=== PATIENT | female | born 1965 | race Caucasian/White ===

== ENCOUNTER → 2016-03-21 | Outpatient (CLI) | payer BC ==
[~2016-03-21] MED LIST: BACIOIN2 TOP
[2016-03-21 18:08] LABS: ALT/SGPT 28 U/L (12-78); BLOOD UREA NITROGEN 18 mg/dl (7-18); BUN/CREATININE RATIO 14.9 (10-20); CALCIUM 9.3 mg/dl (8.5-10.1); CARBON DIOXIDE 28 mmol/L (21-32); CHLORIDE 102 mmol/L (98-107); GLUCOSE 102 mg/dl (70-99); POTASSIUM 3.3 mmol/L (3.5-5.1); SODIUM 140 mmol/L (136-145)
[2016-03-21 18:12] LABS: CHOLESTEROL 222 mg/dl (0-200); CHOLESTEROL/HDL RATIO 5.3; HDL CHOLESTEROL 42 mg/dl; TRIGLYCERIDES 268 mg/dl (0-150); VERY LOW DENSITY LIPOPROT CALC 54 mg/dl
== END | disposition home or self-care (01) ==
LOC: C.LABMFLN 12:15
PROVIDERS: ATTEND Family Medicine
DX: E78.00 Pure hypercholesterolemia, unspecified (principal); I10 Essential (primary) hypertension; E03.9 Hypothyroidism, unspecified; E55.9 Vitamin D deficiency, unspecified

== ENCOUNTER 2021-08-23 07:38 | Observation (INO) ==
--- NOTE | 2021-08-09 11:09 | PAT Medication Instructions ---
Medication Instructions Date of Service August 09, 2021 Home Medications Medication Instructions Recorded glimepiride 1 mg tablet 1 mg PO DAILY #30 tab 08/23/20 celecoxib 200 mg capsule (Celebrex) 200 mg PO DAILY #30 cap 02/20/21 atenolol 25 mg tablet See Rx Instructions .ROUTE 02/21/21 .COMPLEX #30 tablet ondansetron HCl 4 mg tablet 4 mg PO Q8H PRN #14 tab 02/21/21 (Zofran) valsartan 80 mg tablet 80 mg PO DAILY #30 tab 02/21/21 metformin 750 mg tablet,extended 750 mg PO BID #60 tab 03/11/21 release 24 hr atorvastatin 80 mg tablet 80 mg PO DAILY #90 tab 05/22/21 trazodone 50 mg tablet 100 mg PO DAILY PRN #30 tab 05/29/21 levothyroxine 50 mcg tablet 50 mcg PO DAILY #90 tab 06/19/21 cholecalciferol (vitamin D3) 50 mcg (2,000 unit) capsule 2,000 units PO BID glimepiride 1 mg tablet 1 mg PO DAILY celecoxib 200 mg capsule (Celebrex) 200 mg PO DAILY atenolol 25 mg tablet See Rx Instructions .ROUTE .COMPLEX ondansetron HCl 4 mg tablet (Zofran) 4 mg PO Q8H PRN valsartan 80 mg tablet 80 mg PO DAILY metformin 750 mg tablet,extended release 24 hr 750 mg PO BID atorvastatin 80 mg tablet 80 mg PO DAILY trazodone 50 mg tablet 100 mg PO DAILY PRN levothyroxine 50 mcg tablet 50 mcg PO DAILY aspirin 81 mg tablet 81 mg PO QAM cholecalciferol (vitamin D3) 50 mcg (2,000 unit) tablet (Vitamin D3) 50 mcg PO BID famotidine 20 mg tablet 20 mg PO DAILY Continue as directed atenolol 25 mg tablet See Rx Instructions .ROUTE .COMPLEX ondansetron HCl 4 mg tablet (Zofran) 4 mg PO Q8H PRN(if needed) atorvastatin 80 mg tablet 80 mg PO DAILY trazodone 50 mg tablet 100 mg PO DAILY PRN(if needed) levothyroxine 50 mcg tablet 50 mcg PO DAILY famotidine 20 mg tablet 20 mg PO DAILY ASK your surgeon for instructions celecoxib 200 mg capsule (Celebrex) 200 mg PO DAILY DO NOT take the morning of surgery cholecalciferol (vitamin D3) 50 mcg (2,000 unit) capsule 2,000 units PO BID glimepiride 1 mg tablet 1 mg PO DAILY valsartan 80 mg tablet 80 mg PO DAILY metformin 750 mg tablet,extended release 24 hr 750 mg PO BID cholecalciferol (vitamin D3) 50 mcg (2,000 unit) tablet (Vitamin D3) 50 mcg PO BID Take morning of surgery With a small sip of water, OTHERWISE NOTHING TO EAT OR DRINK AFTER MIDNIGHT: aspirin 81 mg tablet 81 mg PO QAM (unless directed otherwise by surgeon) Take evening before surgery metformin 750 mg tablet,extended release 24 hr 750 mg PO BID cholecalciferol (vitamin D3) 50 mcg (2,000 unit) capsule 2,000 units PO BID cholecalciferol (vitamin D3) 50 mcg (2,000 unit) tablet (Vitamin D3) 50 mcg PO BID Other Notes If you have any questions please call us at [phone] or [phone] or [phone] or [phone]
--- NOTE | 2021-08-11 13:48 | Anesthesiology Consultation ---
Date of Service August 11, 2021 Assessment & Plan (1) Encounter for pre-operative examination: - Awaiting review of preop testing (labs + A1C/UA, EKG, CXR). - Awaiting review of preop testing (08/16; [facility]). - COVID screening: Per assessment on 08/08: No known COVID-19 positive contacts or current COVID-19 related symptoms. Travel screen negative. Patient vaccinated. Surgeon arranging preop COVID testing. Awaiting results. Chart Review Chart Review: Patient seen in Pre Admission Testing Teaching & Discussion Pre-Anesthesia Teaching/Discussion Notes: Instructed NPO after midnight before surgery,except medications with 15 cc of water. Medication instructions provided according to the PAT guidelines. History Surgery Operation Date: 08/23/21 11:15 Proposed Procedures p Left Total Knee Arthroplasty - Félix Nelson MD Height/Weight Height: 5 ft 7 in Weight: 123.831 kg Allergies Allergy/AdvReac Type Severity Reaction Status Date / Time meloxicam AdvReac Intermediate Weird Verified 08/09/21 10:11 feeling lisinopril AdvReac Unknown Cough Verified 08/09/21 10:11 Medications Home Medications Medication Instructions Recorded Confirmed Last Taken cholecalciferol (vitamin D3) 50 2,000 units PO BID #1 cap 08/04/18 08/08/21 Unknown mcg (2,000 unit) capsule glimepiride 1 mg tablet 1 mg PO DAILY #30 tab 08/23/20 08/08/21 Unknown celecoxib 200 mg capsule (Celebrex) 200 mg PO DAILY #30 cap 02/20/21 08/08/21 Unknown atenolol 25 mg tablet See Rx Instructions .ROUTE 02/21/21 08/08/21 Unknown .COMPLEX #30 tablet ondansetron HCl 4 mg tablet 4 mg PO Q8H PRN #14 tab 02/21/21 08/08/21 Unknown (Zofran) valsartan 80 mg tablet 80 mg PO DAILY #30 tab 02/21/21 08/08/21 Unknown metformin 750 mg tablet,extended 750 mg PO BID #60 tab 03/11/21 08/08/21 Unknown release 24 hr atorvastatin 80 mg tablet 80 mg PO DAILY #90 tab 05/22/21 08/08/21 Unknown trazodone 50 mg tablet 100 mg PO DAILY PRN #30 tab 05/29/21 08/08/21 Unknown levothyroxine 50 mcg tablet 50 mcg PO DAILY #90 tab 06/19/21 08/08/21 Unknown aspirin 81 mg tablet 81 mg PO QAM 08/08/21 08/08/21 Unknown cholecalciferol (vitamin D3) 50 50 mcg PO BID 08/08/21 08/08/21 Unknown mcg (2,000 unit) tablet (Vitamin D3) famotidine 20 mg tablet 20 mg PO DAILY 08/08/21 08/08/21 Unknown Past Medical History Medical History Diabetes NIDDM GERD (gastroesophageal reflux disease) Hyperlipidemia Hypertension Hypothyroidism Morbid obesity Past Family History Family History Grandmother Diabetes Other Adopted Past Surgical History Surgical History H/O dilation and curettage S/P X2 S/P left knee surgery Social History Smoking Status: Former smoker tobacco type: cigarettes Do You Dip or Chew Tobacco: No Smoking End Date: QUIT 4 YRS AGO Hx Alcohol Use: No Alcohol type: hard liquor Hx Substance Use: No substance use type: does not use Review of Systems Patient denies chest pain, shortness of breath, dyspnea on exertion, fever, chills, cough, wheezing, palpitations. Physical Exam Vital Signs VITALS BP P TEMP SP02 RESP PHYSICAL Full cervical extension range of motion. Full TMJ range of motion. TMD __ finger breaths Mallampati Score ___ Dentition: intact Lungs: clear throughout to auscultation Cardiac: regular rate and rhythm, no murmurs noted Spine: normal Carotid arteries: negative bruit Extremities: no edema
--- NOTE | 2021-08-11 14:04 | Anesthesiology Consultation ---
Date of Service August 11, 2021 Assessment & Plan (1) Encounter for pre-operative examination: - check BSG am DOS. - loose front lower teeth. - PCP clearance upcoming per pt, 08/16. - COVID screening: Per assessment on 08/11/2021: Travel screen negative, no known COVID-19 positive contacts or current COVID-19 related symptoms in past 2 weeks. Pt vaccinated. Surgeon arranging preop COVID testing, scheduled 08/21/2021. Awaiting results. Chart Review Chart Review: Pending: Refer to Additional Notes / Consult section and Patient seen in Pre Admission Testing Teaching & Discussion Pre-Anesthesia Teaching/Discussion Notes: Instructed NPO after midnight before surgery, except medications with 15 cc of water. Medication instructions provided according to the PAT guidelines. History Surgery Operation Date: 08/23/21 11:15 Proposed Procedures p Left Total Knee Arthroplasty - Félix Nelson MD Height/Weight Height: 5 ft 7 in Weight: 126.6 kg Allergies Allergy/AdvReac Type Severity Reaction Status Date / Time meloxicam AdvReac Intermediate Weird Verified 08/11/21 14:11 feeling-dizziness "loopy" lisinopril AdvReac Unknown Cough Verified 08/09/21 10:11 Medications Home Medications Medication Instructions Recorded Confirmed Last Taken cholecalciferol (vitamin D3) 50 2,000 units PO BID #1 cap 08/04/18 08/08/21 Unknown mcg (2,000 unit) capsule glimepiride 1 mg tablet 1 mg PO DAILY #30 tab 08/23/20 08/08/21 Unknown celecoxib 200 mg capsule (Celebrex) 200 mg PO DAILY #30 cap 02/20/21 08/08/21 Unknown atenolol 25 mg tablet See Rx Instructions .ROUTE 02/21/21 08/08/21 Unknown .COMPLEX #30 tablet ondansetron HCl 4 mg tablet 4 mg PO Q8H PRN #14 tab 02/21/21 08/08/21 Unknown (Zofran) valsartan 80 mg tablet 80 mg PO DAILY #30 tab 02/21/21 08/08/21 Unknown metformin 750 mg tablet,extended 750 mg PO BID #60 tab 03/11/21 08/08/21 Unknown release 24 hr atorvastatin 80 mg tablet 80 mg PO DAILY #90 tab 05/22/21 08/08/21 Unknown trazodone 50 mg tablet 100 mg PO DAILY PRN #30 tab 05/29/21 08/08/21 Unknown levothyroxine 50 mcg tablet 50 mcg PO DAILY #90 tab 06/19/21 08/08/21 Unknown aspirin 81 mg tablet 81 mg PO QAM 08/08/21 08/08/21 Unknown cholecalciferol (vitamin D3) 50 50 mcg PO BID 08/08/21 08/08/21 Unknown mcg (2,000 unit) tablet (Vitamin D3) famotidine 20 mg tablet 20 mg PO DAILY 08/08/21 08/08/21 Unknown Past Medical History Medical History (Updated 08/11/21 @ 14:12 by Daniela Betancourt PA-C) Cervical radiculopathy at C6 Pt denies-pt denies neck or upper extremity paresthesias/weakness Depression Diabetes NIDDM GERD (gastroesophageal reflux disease) controlled, stable per pt Hyperlipidemia Hypertension controlled, stable per pt Hypothyroidism Morbid obesity Patient denies h/o stroke, seizures, heart attack, heart failure, blood clots or blood transfusions. Exercise / Class Metabolic Activity II 4-5 Yardwork/Stairs/Walk up hill (mild SOB walking up a hill chronic x yrs with reduced activity d/t knee pain, reports significant improvement since stopped smoking several yrs ago; lives in ranch style home; denies chest discomfort) Past Family History Family History Grandmother Diabetes Other Adopted Past Surgical History Surgical History H/O dilation and curettage S/P X2 S/P left knee surgery Past Anesthesia History No Hx of Anesthesia Complications and No Family Hx of Anesthesia Complications History of PONV No Hx of PONV and Hx of Motion Sickness Social History Smoking Status: Former smoker tobacco type: cigarettes Do You Dip or Chew Tobacco: No Smoking End Date: QUIT 4 YRS AGO Hx Alcohol Use: No Alcohol type: hard liquor Hx Substance Use: No substance use type: does not use Review of Systems Snoring, denies witnessed apneas or sleep studies. Patient denies chest pain, fever, chills, cough, wheezing, or palpitations. Physical Exam Vital Signs Vitals BP 112/72 P 69 TEMP 98.2 SP02 98% on RA RESP 17 Physical Full cervical extension range of motion without pain TMD 3.5 finger breaths Mallampati Score 2 Dentition: intact, loose lower front teeth; chipped teeth-lower sides and back; full upper dentures; denies implants or bridges, caps/crowns Lungs: normal respiratory effort. Clear throughout to auscultation, no adventitious breath sounds Cardiac: regular rate and rhythm, no murmurs noted Carotid arteries: negative bruit bilat Lab Results Anesthesia Preop Results Results Anesthesia Widget: WBC 9.91 K/uL (4.8-10.8) 08/11/21 Hgb 13.4 g/dL (12.0-16.0) 08/11/21 Hct 42.1 % (37-47) 08/11/21 Plt 413 K/uL (130-400) H 08/11/21 Na 140 mmol/L (136-145) 08/11/21 K 4.2 mmol/L (3.5-5.1) 08/11/21 Cl 105 mmol/L (98-107) 08/11/21 CO2 31 mmol/L (21-32) 08/11/21 BUN 22 mg/dl (6-23) 08/11/21 Creat 1.30 mg/dl (0.6-1.2) H 08/11/21 Glucose Level 108 mg/dl (70-99(Fasting)) H 08/11/21 PT 10.6 Seconds (9.0-12.0) 08/11/21 PTT 25.7 Seconds (21.0-31.0) 08/11/21 INR 1.0 (0.9-1.1) 08/11/21 HA1c 6.4 % (4.5-5.6) H 08/11/21 Urine Color Yellow 08/11/21 Urine Appearance Clear (Clear) 08/11/21 Urine pH 7.0 (4.5-7.5) 08/11/21 Urine Specific [place] 1.021 (1.000-1.030) 08/11/21 Urine Protein Negative (Negative) 08/11/21 Urine Glucose (UA) Negative (Negative) 08/11/21 Urine Ketones Negative (Negative) 08/11/21 Urine Blood Negative (Negative) 08/11/21 Urine Nitrite Negative (Negative) 08/11/21 Urine Bilirubin Negative (Negative) 08/11/21 Urine Urobilinogen Positive (Negative) H 08/11/21 Urine Leukocyte Esterase Negative (Negative) 08/11/21 Blood Type B Positive 08/11/21 Antibody Screen NEGATIVE 08/11/21 Testing Electrocardiogram Date: 08/11/21 Sinus rhythm with 1st degree block, rate 69 bpm Chest X-Ray Date: 08/11/21 No lines and tubes are seen. The cardiomediastinal silhouette is normal. The lungs are clear. No evidence of pleural effusion or pneumothorax. IMPRESSION: No acute chest disease.
--- NOTE | 2021-08-20 19:48 | History & Physical Report ---
Date of Service August 20, 2021 Assessment & Plan (1) Primary osteoarthritis of left knee: Plan: Treatment options discussed with patient. She has failed conservative measures and would like to proceed with surgery. Risks, benefits and alternatives to surgery including but not limited to infection, DVT, pain, stiffness, need for revision surgery, damage to blood vessels, damage to nerves, PE, , were discussed with the patient and they wish to proceed. Plan for left total knee arthroplasty scheduled for 08/23/21 at [facility] with Dr. Nelson. Will plan on Xarelto post op for DVT prophylaxis, home health PT post op. All questions answered. History of Present Illness Chief Complaint: Left knee pain Primary Care Provider: Stephen Molina MD 56 year old female with PMHx significant for HTN, high cholesterol, DM2 hypothyroid who presents with ongoing left knee pain. She has failed conservative measures. Pain interfering with her daily activities. She would like to proceed with surgical management. Patient denies headaches, sweats, fevers, chills, double vision, blurred vision, cough, sore throat, dysphagia, chest pain, sob, wheezing, n/v/d/c, numbness, tingling, fatigue, urinary symptoms, mood disorders. ROS positive for left knee pain and stiffness. Allergies Allergy/AdvReac Type Severity Reaction Status Date / Time meloxicam AdvReac Intermediate Weird Verified 08/16/21 16:22 feeling-dizziness "loopy" lisinopril AdvReac Unknown Cough Verified 08/16/21 16:22 Home Medications Medication Instructions Recorded Confirmed Type atenolol 25 mg tablet See Rx Instructions .ROUTE 02/21/21 08/16/21 Rx .COMPLEX #30 tablet ondansetron HCl 4 mg tablet 4 mg PO Q8H PRN #14 tab 02/21/21 08/16/21 Rx (Zofran) valsartan 80 mg tablet 80 mg PO DAILY #30 tab 02/21/21 08/16/21 Rx metformin 750 mg tablet,extended 750 mg PO BID #60 tab 03/11/21 08/16/21 Rx release 24 hr atorvastatin 80 mg tablet 80 mg PO DAILY #90 tab 05/22/21 08/16/21 Rx trazodone 50 mg tablet 100 mg PO DAILY PRN #30 tab 05/29/21 08/16/21 Rx levothyroxine 50 mcg tablet 50 mcg PO DAILY #90 tab 06/19/21 08/16/21 Rx aspirin 81 mg tablet 81 mg PO QAM 08/08/21 08/16/21 History famotidine 20 mg tablet 20 mg PO DAILY 08/08/21 08/16/21 History cholecalciferol (vitamin D3) 75 75 mcg PO BID tab 08/16/21 08/16/21 History mcg (3,000 unit) tablet glimepiride 1 mg tablet 0.5 mg PO DAILY tab 08/16/21 History Past Med/Surg History Medical History (Updated 08/20/21 @ 19:53 by Karlos Blakely PA-C) Cervical radiculopathy at C6 Pt denies-pt denies neck or upper extremity paresthesias/weakness Depression Diabetes NIDDM GERD (gastroesophageal reflux disease) controlled, stable per pt Hyperlipidemia Hypertension controlled, stable per pt Hypothyroidism Morbid obesity Surgical History H/O dilation and curettage S/P X2 S/P left knee surgery Family History Grandmother Diabetes Other Adopted Social History Smoking Status: Former smoker Age Started Using Tobacco: 15; Age Quit Using Tobacco: 53; Number of Years Since Quit: 35; Second Hand Exposure: No; Hx Alcohol Use: No Hx Substance Use: No Preferred Language: Gibraltarian Communication Ability: Effective Metallurgy Teacher Required: No Beliefs That Will Affect Care: None marital status: Current Living Situation: Spouse Current Living Situation Comment: spouse and daughter comes and goes Feels Safe at Home: Yes Childhood Exposure to Second-Hand Smoke: Yes Seatbelt Use: always Sunscreen Use: Yes Assistive Devices: Cane, Denture - Upper, Glasses and Walker Review of Systems All systems reviewed & are unremarkable except as noted in HPI & below Physical Exam Constitutional: well developed and well nourished; no acute distress Eyes: PERRL, conjunctivae normal, anicteric sclerae ENMT: external ear and nose normal, oropharynx normal Neck: trachea midline, no thyromegaly Respiratory: normal respiratory effort, lungs clear to auscultation Cardiovascular: RRR, no murmur, no edema Musculoskeletal: Left knee: Valgus alignment. Moderate crepitation with ROM. Tenderness lateral joint line. Positive Silvia's. Stable to valgus and varus stress. ROM 10-125 degrees. Skin: no rashes, warm and dry Neurologic: patellar DTR's 2+ bilat, sensation intact Psychiatric: A+Ox3, euthymic affect Results & Data ([facility]) Diagnostic Findings Left knee: Tricompartmental osteoarthritis, Bone on bone lateral compartment with periarticular osteophyte formation and subchondral sclerosis. Valgus alignment.
[~2021-08-23 07:38] MED LIST changes: +ACETAMINOPHEN 500 MG TAB PO SCH; -BACIOIN2 TOP; +BUPIVACAINE 0.5 % 5 MG/1 ML PF 10ML VIAL ONE; +CeleBREX 200 MG CAP PO SCH; +FAMOTIDINE 20 MG TAB PO SCH; +GABAPENTIN 600 MG DOSE PO SCH; +LR 500ML BOLUS, THEN 15ML/HR IV SCH; +METOCLOPRAMIDE HCL 10 MG TABLET PO SCH; +ROPIVACAINE 0.5% 5 MG/ML 30 ML VIAL ONE; +ROPIVACAINE 0.5% HCL/PF 150 MG, BUPIVACAINE 0.75% MPF 20 ML, EPINEPHrine 30MG/30ML (OR ... INFIL SCH; +TRANEXAMIC ACID 1,000 MG **IV Intra-op IV SCH; +TRANEXAMIC ACID 1,000 MG **IV Pre-op IV SCH; +ceFAZolin 2000MG 2,000 MG/15 ML SYR IV SCH
[2021-08-23] MEDS ORDERED: MIDAZOLAM HCL 1 MG/ML 2ML VIAL ONE ×2 (08:46→09:39)
[2021-08-23] MEDS ORDERED: ONDANSETRON INJ 2 MG/ML 2 ML VIAL ONE (08:46)
[2021-08-23] MEDS ORDERED: PROPOFOL IV EMULSION 10 MG/ML 20 ML VIAL IV ONE ×8 (08:46→12:27)
[2021-08-23] MEDS ORDERED: fentaNYL citrate 100 MCG/2 ML VIAL ONE (08:46)
[2021-08-23] MEDS ORDERED: LIDOCAINE 2% 2 ML VIAL/AMP(20MG/ML) INFIL ONE (08:46)
[2021-08-23] MEDS ORDERED: fentaNYL citrate 100 MCG/2 ML VIAL IV PRN (09:12)
[2021-08-23] MEDS ORDERED: ePHEDrine sulfate 50 MG/ML AMP IV PRN (09:12)
[2021-08-23] MEDS ORDERED: ATROPINE SULFATE 0.1 MG/ML 10ML SYR IV PRN (09:12)
[2021-08-23] MEDS ORDERED: ORTHO JOINT ANESTHETIC ONE (09:43)
--- NOTE | 2021-08-23 09:46 | History & Physical Bridge Note ---
Date of Service August 23, 2021 History & Physical Bridge Note I have examined the patient, reviewed the History & Physical and in the interval since the performance of the History & Physical I have noted the following changes of clinical significance: no changes noted
[2021-08-23] MEDS ORDERED: KETAMINE 50 MG/5 ML SYRINGE ONE (10:17)
[2021-08-23] MEDS ORDERED: ePHEDrine sulfate 50 MG/ML AMP ONE (10:32)
[2021-08-23] MEDS ORDERED: GLYCOPYRROLATE 0.2 MG/ML VIAL ONE (11:38)
--- NOTE | 2021-08-23 13:01 | Post Operative Brief Note ---
Immediate Post Op Note v1 Date of Surgery August 23, 2021 Pre & Post Diagnosis Operation Date: 08/23/21 09:40 Pre-Op Diagnosis: Primary Osteoarthritis of Left Knee, morbid obesity BMI 42.6 Post-Op Diagnosis: Primary Osteoarthritis of Left Knee, morbid obesity BMI 42.6 I identified the patient and participated in the time-out.: Yes Procedure Operation Date: 08/23/21 09:40 Actual Procedures p Left Total Knee Arthroplasty(Left), lateral release, superficial wound VAC application- Félix Nelson MD Surgeon Félix Nelson MD Online Marketing Director Bridger ORTEGA Estimated Blood Loss 5 Findings Consistent with Post-Op Diagnosis Specimens Bone cuts Drains Hemovac Drain Anesthesia Type MAC Spinal Regional Complications none Disposition Disposition: Recovery Room Overlapping Procedure I was immediately available: during the entire case.
--- NOTE | 2021-08-23 13:06 | Operative Report ---
Post Operative Report Pre & Post Diagnosis Operation Date: 08/23/21 09:40 Pre-Op Diagnosis: Primary Osteoarthritis of Left Knee, morbid obesity BMI 42.6 Post-Op Diagnosis: Primary Osteoarthritis of Left Knee, morbid obesity BMI 42.6 I identified the patient and participated in the time-out.: Yes Procedure Operation Date: 08/23/21 09:40 Actual Procedures p Left Total Knee Arthroplasty(Left), lateral release, application superficial wound VAC, increased difficulty more obesity BMI 42.6 Félix Nelson MD Surgeon Félix Nelson MD Assistant In Nursing Bridger ORTEGA Estimated Blood Loss 5 Findings Consistent with Post-Op Diagnosis Specimens Bone cuts Drains 2 Hemovac Anesthesia Type MAC Spinal Regional Complications none Indications 56-year-old female with very severe osteoarthritis of her left knee and advanced osteoarthritis of her right knee. Left knee has large tricompartmental osteophytes and valgus knee [id number] in the lateral compartment and hypoplastic lateral femoral condyle flexion contracture and limited range of motion. [id number] medial and lateral compartments on flexion views Description of Procedure Patient taken to the operating room the size under spinal MAC regional block anesthesia. Patient was placed supine on the operating table. A pneumatic tourniquet was placed about the obese left upper thigh. The left lower extremity was prepped and draped in sterile fashion. Knee exam demonstrated obesity of the leg thigh and a more than typical fat deposit over the prepatellar bursa area. Range of motion was 15 degrees with flexion contracture with further flexion to 95 degrees. There was no pseudolaxity and a tight lateral compartment. The leg was elevated exsanguinated with an Esmarch bandage and pneumatic tourniquet was raised to 350 millimeters of mercury. Skin incised sharply in longitudinal fashion. Subcutaneous flaps elevated. Incision was made through the medial retinaculum extending up in the mid third of the quadric eps tendon and down to the medial tibial tubercle. Intra-articular findings demonstrated massive osteophytes [id number] in medial lateral compartments with large osteophytes in the patellofemoral joint. ACL was chronically torn and was complete notch stenosis with bone coursing across the entire notch. There was a hypoplastic lateral femoral condyle with bone loss laterally. There is widening of the femur and tibia due to osteophytes with widening of the lateral tibial plateau. The [employer] triVena Solutionslon total knee arthroplasty system was used. To expose the knee the infrapatellar fat pad was resected. A curved osteotome was used to resect the notch osteophytes to visualize the PCL. The meniscal remnants and the posterior cruciate ligament were resected. The anterior fat pad over the femur in the area of the anterior flange of the femoral component was resected. Lateral synovial bands release. The femur was exposed. Some of the larger osteophytes had to be removed with a rongeur to get appropriate sizing and placement of the cutting guides. An intramedullary drill hole was made into the canal. A guide phillip was placed. Distal femoral cutting guide was adjusted to resect a 6 degree valgus cut with 10 millimeters distal femur resected. The knee was extended and a subperiosteal peel lateral release was performed around the patella. Patella width was measured and width was reproduced using a freehand cut technique and a 33 x 9 symmetrical patella component. The 3 drill holes were made and the excess lateral facet was beveled off to prevent any impingement. Attention was taken back to the femur which was exposed with retractors and the femoral sizing guide was pinned in position. The drill holes were placed in line with the epicondylar axis. Femur sized for a 5 component. The 4-in-1 cutting block was placed and then the anterior posterior and chamfer cuts are made. The tibia was then subluxed. Some of the large osteophytes had to be removed to allow placement of the appropriate cutting guide. The external tibial cutting guide was just to make a perpendicular cut to the long axis of the tibia below the most deficient bone loss side. A lamina developing machine tender was used and the flexion extension gaps were balanced. Did release some of the lateral capsule and subperiosteal release of the upper IT band off the tibia. All posterior osteophytes removed. All meniscal remnants were resected. The tibia exposed and the trial tibial component size 5 was externally rotated in line with the tibial tubercle and pinned in position. The drill and punch for the 50 mm cemented stem extension was used. The notch cutting device was centered appropriately and the femoral notch cut was made. The femoral trial was inserted. Trial tibial inserts were placed and size 16 posterior stabilized insert gave balanced ligaments through flexion and extension. Patella tracking was assessed. The patella tracked with lateral tilt so I did a lateral release leaving as much synovium intact as possible. Patella tracks centrally with no hand technique. The trial components were then removed and the orthomix anesthetic cocktail was injected per protocol. The knee was then copiously irrigated with pulsatile lavage saline solution. Final components were then cemented with Refobacin cement. Final components were [place] triathlon left size 5 posterior stabilized femoral component, triathlon universal tibial baseplate size 5, 12 x 50 mm tibial cemented stem, size five 16mm thickness X.3 polyethylene tibial bearing posterior stabilized insert, 33 x 9 symmetrical patella X.3 polyethylene. After the cement cured the Betadine soak was used for 3 minutes. Further pulsatile lavage irrigation was then performed and 2 Hemovac drains were brought out laterally. The quadriceps tendon and medial retinaculum were closed with figure of 8 #1 Vicryl sutures. The knee was taken through full range of motion and the repair was secure. Knee range of motion was 0 through 130 degrees. The subcutaneous tissues were closed with layers of 2-0 Vicryl sutures. Skin was closed with capri. Vadim and Acticoat superficial wound VAC was applied. The patient tolerated the procedure well. There was increased level difficulty due to her obesity which added 30 minutes of procedure. Bridger ORTEGA was my physician shampoo assistant who participated as social service assistant and was involved in all aspects of the procedure including patient positioning prepping and draping,leg positioning ,soft tissue retraction and instrument management and participated in the closing and will participate in postoperative care of the patient. The patient tolerated the procedure well. I attest to the content of the Intraoperative Record and any orders documented therein. Any exceptions are noted below.
--- NOTE | 2021-08-23 13:35 | XRay Report ---
XR knee LT 1 or 2V routine CLINICAL HISTORY: Surgical Post Op. Status post total knee replacement COMPARISON STUDY: No previous studies for comparison. TECHNIQUE: 2 left knee views FINDINGS: The patient is status post total knee replacement. The prosthetic components are in anatomi c alignment with no acute abnormality seen. Air is present within the soft tissues from the procedure . Skin capri are seen anteriorly. IMPRESSION: 1. Status post total knee replacement with resurfacing of the patella. ACT 112: Negative or not required by law. Electronically signed by: Jhony Vital M.D. 08/23/2021 1:33 PM
[2021-08-23] MEDS ORDERED: EPINEPHrine HCL INJ 1 MG/ML 30ML ONE (13:49)
[2021-08-23] MEDS ORDERED: traZODone HCL 100 MG TAB PO PRN (14:07)
[2021-08-23] MEDS ORDERED: ONDANSETRON INJ 2 MG/ML 2 ML VIAL IV PRN (14:07)
[2021-08-23] MEDS ORDERED: FAMOTIDINE 20 MG TAB PO PRN (14:07)
[2021-08-23] MEDS ORDERED: HYDROmorphone INJ 0.5 MG/0.5 ML SYR IV PRN (14:07)
[2021-08-23] MEDS ORDERED: bisacodyL 10 MG SUPP PR PRN (14:07)
[2021-08-23] MEDS ORDERED: METOCLOPRAMIDE HCL INJ 5 MG/ML 2 ML VIAL IV PRN (14:07)
[2021-08-23] MEDS ORDERED: NALOXONE HCL 0.4 MG/1 ML VIAL/CARP IV PRN (14:07)
[2021-08-23] MEDS ORDERED: PHARMACY GLYCEMIC MGMT CONSULT PRN (14:07)
[2021-08-23] MEDS ORDERED: MAGNESIUM HYDROXIDE SUSP 30 ML UDC PO PRN (14:07)
--- NOTE | 2021-08-23 14:22 | Pharmacy Report ---
Glycemic Ortho Sign Off Note - Date of Service August 23, 2021 - Scope Glycemic Pharmacist consulted for glycemic control and to write orders per [facility] inpatient glycemic control protocol. - Objective Accuchecks BSG (last 24hrs):: 08/23/21 08/23/21 08:02 13:00 POC Glucose 179 H 138 H - Assessment * Pt is maintained on oral antidiabeticagent[s]as anoutpatient with excellent control per recent A1c * Oral agents are not recommended for inpatient use d/t drug interactions, changing PO intake, and difficulty titrating for acute hyper/hypoglycemia. * Recommended regimen for inpatient use is SQ insulin * Low stress weight based insulin dosing appropriate since patient has minimal risk factors for insulin resistance (i.e. no steroids). * Appropriate to DC insulin and resume outpatient antidiabetic regimen at discharge * Goal is to maintain BSGs <200 mg/dl (ideally <150 mg/dl) to prevent post op complications - Plan For Inpatient Glycemic Control * Basal insulin * Not needed based on A1c, pre-op BSGs, and minimal risk factors for insulin resistance * Bolus insulin * Utilize low stress weight based NovoLog parameters per scale ACHS * Pharmacy has entered glycemic orders and is signing off of the glycemic consult. We will no longer be making adjustments to inpatient regimen. Please feel free to re-consult if needed. Thank you.
[2021-08-23] MEDS ORDERED: ONDANSETRON 4 MG OD TAB PO PRN (14:23)
[2021-08-23] MEDS ORDERED: SODIUM CHLORIDE 0.9% 1000ML 1,000 ML IV SCH (14:30)
[2021-08-23] MEDS ORDERED: GLUCOSE 40% GEL 15 GM TUBE PO PRN (14:45)
[2021-08-23] MEDS ORDERED: CARBOHYDRATES FOR HYPOGLYCEMIA PO PRN (14:45)
[2021-08-23] MEDS ORDERED: DEXTROSE 50% 50 ML SYRINGE IV PRN (14:45)
[2021-08-23] MEDS ORDERED: GLUCOSE 10 TABS/TUBE PO PRN (14:45)
[2021-08-23] MEDS ORDERED: GLUCAGON FOR INJ 1 MG VIAL IM PRN (14:45)
--- NOTE | 2021-08-23 15:07 | Anesthesiology Progress Note ---
Date of Service August 23, 2021 Anesthesia Post Procedure Vital Signs Vital Signs: Temp Pulse Pulse Resp BP Pulse Ox 08/23/21 15:03 36.9 C 18 118/75 97 08/23/21 14:21 36.4 C L 76 109/74 97 08/23/21 13:45 76 19 107/64 93 08/23/21 13:30 76 15 109/72 94 08/23/21 13:25 72 14 114/75 95 08/23/21 13:15 36.5 C 79 13 95/58 L 95 08/23/21 13:05 86 21 91/59 L 98 08/23/21 12:55 36.6 C 90 17 93/55 L 99 08/23/21 08:11 36.5 C 64 18 137/76 99 Pain Intensity Left Knee: Pain Intensity: 6 Transfer of Care Handoff Completed per policy Notes Mental Status: alert / awake / arousable and participated in evaluation Patient Amnestic to Procedure: Yes Nausea / Vomiting: adequately controlled Pain: adequately controlled Airway Patency, RR, SpO2: stable & adequate BP & HR: stable & adequate Hydration State: stable & adequate Neuraxial Anesthesia: was administered and sensory block is resolving Anesthetic Complications: no major complications apparent
--- NOTE | 2021-08-23 15:50 | Hospitalist Consultation ---
Date of Consultation August 23, 2021 Assessment & Plan (1) Primary osteoarthritis of left knee: - s/p left TKA. EBL 5cc. [address] No complications reported. - Defer ABX/IVF/pain management/VTE PPx to primary team. - Rescue Narcan ordered as needed. - CBC and BMP in a.m. (2) Diabetes mellitus: - Currently taking metformin ER 750 mg twice daily and glimepiride 0.5 mg on days when sugar is high. - A1c August 2021 6.4, average blood sugar 137. - Pharmacy consulted by primary team for glycemic control, holding oral agents today , using accuchecks with SSI. - Patient may restart oral medications on discharge. (3) Hypertension: - Currently on valsartan 80 mg daily and atenolol 25 mg daily. - Continue atenolol tomorrow, may also continue valsartan tomorrow pending no electrolyte abnormalities or decreased renal function on a.m. BMP tomorrow. (4) HLD (hyperlipidemia): - Continue atorvastatin 80 mg daily. (5) Hypothyroidism: - Continue levothyroxine 50 mcg daily. - TSH in May 2021 5.09. (6) Insomnia: - Takes trazodone 100 mg as needed, but no every night. May continue if needed tonight. - Admitted to [facility] per primary team. - VTE PPx per primary team. - Full code. Supervising Physician Co-Signing Physician Notes Patient seen and examined, chart reviewed, case discussed with Meryl Garcia PA-C and I agree with the assessment and plan as above except as otherwise noted General: A&Ox3. NAD. Cooperative. HEENT: Atraumatic, normocephalic. Vision/hearing grossly intact. Pulm: CTAB A&P. -wheezes, -rales, -rhonchi. Symmetrical chest rise. No increase in work of breathing. No respiratory distress. Cardiac: RRR, -mrg. Radial pulses intact and symmetrical. Abdominal: Nontender, nondistended, soft. BS present. Extremities: Left knee in postsurgical wrap, drain in place with sanguinous output. Sensation is soft touch intact in feet without asymmetry. PT pulses intact bilaterally. Labs and images reviewed 56-year-old female status postLeft TKA. With some left knee postoperative stiffness and pain at the knee, otherwise doing well. Agree with management above. Continue multimodal pain control per primary team DVT prophylaxis per primary team. Case management working on cost of DOAC. BMP daily, normotensive with baseline creatinine and agree with continuing ARB/atenolol. History of Present Illness Reason for Consultation: Medical management Attending Physician: Félix Nelson MD History of Present Illness Shereen Lundberg is a 56-year-old female with past medical history significant for DM2, hypertension, hyperlipidemia, GERD, and hypothyroidism who was admitted today, 08/[address] Nelson for an elective left TKA. Hospitalist team was consulted for medication management. Today, Shereen is POD #0. She is doing well without complaints. She denies fever/chills, chest pain, palpitations, shortness of breath, cough, abdominal pain, nausea, vomiting. Allergies Allergy/AdvReac Type Severity Reaction Status Date / Time meloxicam AdvReac Intermediate Weird Verified 08/23/21 08:08 feeling-dizziness "loopy" lisinopril AdvReac Unknown Cough Verified 08/23/21 08:08 Home Medications Medication Instructions Recorded Confirmed Type atenolol 25 mg tablet See Rx Instructions .ROUTE 02/21/21 08/23/21 Rx .COMPLEX #30 tablet ondansetron HCl 4 mg tablet 4 mg PO Q8H PRN #14 tab 02/21/21 08/23/21 Rx (Zofran) metformin 750 mg tablet,extended 750 mg PO BID #60 tab 03/11/21 08/23/21 Rx release 24 hr atorvastatin 80 mg tablet 80 mg PO DAILY #90 tab 05/22/21 08/23/21 Rx trazodone 50 mg tablet 100 mg PO DAILY PRN #30 tab 05/29/21 08/23/21 Rx levothyroxine 50 mcg tablet 50 mcg PO DAILY #90 tab 06/19/21 08/23/21 Rx aspirin 81 mg tablet 81 mg PO QAM 08/08/21 08/23/21 History famotidine 20 mg tablet (Pepcid) 20 mg PO DAILY PRN 08/08/21 08/23/21 History cholecalciferol (vitamin D3) 75 75 mcg PO BID tab 08/16/21 08/23/21 History mcg (3,000 unit) tablet glimepiride 1 mg tablet 0.5 mg PO DAILY tab 08/16/21 08/23/21 History acetaminophen 500 mg tablet 1,000 mg PO Q8 14 Days #84 tab 08/23/21 Rx (Tylenol Extra Strength) valsartan 80 mg tablet (Diovan) 80 mg PO DAILY 08/23/21 08/23/21 History oxycodone 5 mg tablet 5 mg PO Q4H PRN #30 tab MDD 6 08/24/21 Rx polyethylene glycol 3350 17 gram 17 g PO DAILY PRN #5 ea 08/24/21 Rx oral powder packet (Miralax) rivaroxaban 10 mg tablet (Xarelto) 10 mg PO DAILY 30 Days #30 tab 08/24/21 Rx Patient History Medical History Benign essential hypertension Cervical radiculopathy at C6 Pt denies-pt denies neck or upper extremity paresthesias/weakness Depression Diabetes NIDDM GERD (gastroesophageal reflux disease) controlled, stable per pt Hyperlipidemia Hypertension controlled, stable per pt Hypothyroidism Morbid obesity Surgical History H/O dilation and curettage S/P X2 S/P left knee surgery Family History Grandmother Diabetes Other Adopted Social History Smoking Status: Former smoker Age Started Using Tobacco: 15; Age Quit Using Tobacco: 53; Smoking End Date: QUIT 4 YRS AGO; Number of Years Since Quit: 35; Second Hand Exposure: No; Do You Dip or Chew Tobacco: No; Tobacco Cessation Education Requested by Patient: No Hx Alcohol Use: No Hx Substance Use: No Preferred Language: Canadian Communication Ability: Effective Field Crew Chief Required: No Beliefs That Will Affect Care: None marital status: Current Living Situation: Spouse Current Living Situation Comment: spouse and daughter comes and goes Other Information That Helps Us Care for You: No Feels Safe at Home: Yes Safety Concerns: Feels Safe At This Time Childhood Exposure to Second-Hand Smoke: Yes Seatbelt Use: always Sunscreen Use: Yes Assistive Devices: Walker Assistive Devices Comment: USES CANE OCC. HAS WALKER THAT WILL BRING DOS Review of Systems Review of Systems: Constitutional: No fever/chills, weakness, fatigue, myalgias, anorexia, night sweats Eyes: No diplopia, no worsening or blurred vision ENT: normal hearing, no trouble swallowing Respiratory: No cough, sputum, dyspnea at rest or on exertion Cardiovascular: No chest pain, tightness or palpitations Abdomen: No pain, nausea, vomiting, diarrhea or constipation : Denies dysuria, hematuria, increased urgency/frequency, urinary retention Musculoskeletal: No joint pain, calf pain, swelling Neurologic: No weakness, numbness/tingling, or balance problems Psychiatric: No anxiety or depression Skin: No rash or itch Physical Exam Physical Exam: General: awake, alert, no apparent distress Head: Normocephalic, atraumatic ENT: PERRL, EOMI, no pharyngeal exudate, mucous membranes moist Chest: Clear to auscultation, on room air, no adventitious breath sounds Cardiac: Regular rate and rhythm, no murmur, no JVD, normal peripheral pulses, good capillary refill Abdominal: NABS x 4 quadrants, soft, nontender to palpation, no rebound, guarding or tenderness Extremities: LLE wrapped; Normal inspection, no peripheral edema or erythema, calfs nontender to palpation Psych: Normal mood and affect Neuro: AAO x 3, strength intact bilaterally and rated 5/5, no motor deficits, speech is clear, no peripheral sensory deficits Skin: no rash or erythema Results & Data Results & [facility] ([facility]) Vital Signs (Past 12 Hours) Vital Signs Temp Pulse Pulse Resp BP Pulse Ox 08/23/21 15:03 36.9 C 18 118/75 97 08/23/21 14:21 36.4 C L 76 109/74 97 08/23/21 13:45 76 19 107/64 93 08/23/21 13:30 76 15 109/72 94 08/23/21 13:25 72 14 114/75 95 08/23/21 13:15 36.5 C 79 13 95/58 L 95 08/23/21 13:05 86 21 91/59 L 98 08/23/21 12:55 36.6 C 90 17 93/55 L 99 08/23/21 08:11 36.5 C 64 18 137/76 99 Laboratory Results Abnormal lab results 08/23/21 08/23/21 Range/Units 08:02 13:00 POC Glucose 179 H 138 H (70-99) mg/dl Diagnostic Findings Knee X-Ray 08/23/21 12:55 XR knee LT 1 or 2V routine CLINICAL HISTORY: Surgical Post Op. Status post total knee replacement COMPARISON STUDY: No previous studies for comparison. TECHNIQUE: 2 left knee views FINDINGS: The patient is status post total knee replacement. The prosthetic components are in anatomic alignment with no acute abnormality seen. Air is present within the soft tissues from the procedure. Skin capri are seen anteriorly. IMPRESSION: 1. Status post total knee replacement with resurfacing of the patella. ACT 112: Negative or not required by law. Electronically signed by: Jhony Vital M.D. 08/23/2021 1:33 PM PG Care Time/CCT Total # of Minutes Spent Total Time Spent with Patient: Total time spent is greater than 50% in coordination of care (as documented) at patient's floor/unit and/or counseling patient: Coding Level of Care Code 98166 Inpt Consult Level 2 Diagnoses Primary osteoarthritis of left knee M17.12 Diabetes mellitus E11.9 HLD (hyperlipidemia) E78.5 Hypothyroidism E03.9 Hypertension I10 Insomnia G47.00
[2021-08-23] MEDS: ATENOLOL 25 MG TABLET PO SCH (16:13)
[2021-08-23] MEDS: ACETAMINOPHEN 500 MG TAB PO SCH ×2 (16:20→20:44)
[2021-08-23] MEDS: INSULIN ASPART PER UNIT SC SCH ×2 (17:40→20:35)
[2021-08-23] MEDS: ceFAZolin 2000MG 2,000 MG/15 ML SYR IV SCH (17:41)
[2021-08-23] MEDS: oxyCODONE HCL IR 5 MG TAB (IMMEDIATE RELEASE) PO PRN ×2 (18:28→23:41)
[2021-08-23] MEDS: CHOLECALCIFEROL 1,000 UNITS 25 MCG TAB PO SCH (20:45)
[2021-08-23] MEDS: SENNA 8.6 MG TAB PO SCH (20:45)
[2021-08-23] MEDS: DOCUSATE SODIUM 100 MG CAP PO SCH (20:45)
[2021-08-24] MEDS: ceFAZolin 2000MG 2,000 MG/15 ML SYR IV SCH (01:13)
[2021-08-24] MEDS: oxyCODONE HCL IR 5 MG TAB (IMMEDIATE RELEASE) PO PRN ×3 (04:41→17:57)
[2021-08-24] MEDS: LEVOTHYROXINE SODIUM 50 MCG TABLET PO SCH (04:42)
[2021-08-24] MEDS: ACETAMINOPHEN 500 MG TAB PO SCH ×3 (04:43→21:33)
[2021-08-24 06:19] LABS: Hematocrit (blood only) 38.9 % (37-47); Hemoglobin 12.2 g/dL (12.0-16.0); Mean Corpuscular Hemoglobin 28.8 pg (25-34); Mean Corpuscular Hgb Conc 31.4 g/dL (32-36); Mean Corpuscular Volume 91.7 fL (80-100); Mean Platelet Volume 10.4 fL (7.4-10.4); Platelet Count 310 K/uL (130-400); RDW Coefficient of Variation 13.6 % (11.5-14.5); RDW Standard Deviation 45.5 fL (36.4-46.3); Red Blood Count 4.24 M/uL (4.2-5.4); White Blood Count 8.29 K/uL (4.8-10.8)
[2021-08-24 06:43] LABS: BUN Creatinine Ratio 17.7 (10-20); Calcium 9.2 mg/dl (8.5-10.1); Creatinine Clr Calc Pharmacy 74.9 ml/min; Est GFR (African American) 62.5 ml/min; Est GFR (Non-African American) 53.9 ml/min; Potassium 4.3 mmol/L (3.5-5.1)
--- NOTE | 2021-08-24 08:14 | Orthopedic Progress Note ---
Date of Service August 24, 2021 Assessment & Plan (1) Primary osteoarthritis of left knee: Plan: Postop day 1 status post left total knee arthroplasty PT/OT protocols. Weightbearing as tolerated. DVT prophylaxis-rivaroxaban p.o. daily, SCDs, ZOLTAN dawn. Pain management as written DC planning-patient is hoping for home health services upon discharge. Case management in the process of arranging. Admission and Anticipated Discharge Date Admission Date: August 23, 2021 Subjective Postop day 1 Patient lying in bed awake and alert. States she had a bit of a rough night with pain in the upper thigh likely secondary to tourniquet. Pain is much better controlled this morning. She has no complaints. Denies shortness of breath, chest pain, lightheadedness. Physical Exam Physical Exam: Dressings are clean, dry, and intact. Calves are soft and no ntender. Neurovascular intact. Toes are mobile. She has good dorsiflexion and plantarflexion of the left foot. Hemovac drainage was 125 mL from the previous shift. Results & Data ([facility]) Vital Signs (Past 12 Hours) Vital Signs Temp Pulse Resp BP BP Pulse Ox 08/24/21 07:43 36.6 C 76 18 106/70 94 08/24/21 04:28 36.4 C L 73 18 135/82 96 08/23/21 23:14 36.4 C L 66 16 115/74 97 Laboratory Results Laboratory Results WBC 8.29 K/uL (4.8-10.8) 08/24/21 06:07 RBC 4.24 M/uL (4.2-5.4) 08/24/21 06:07 Hgb 12.2 g/dL (12.0-16.0) 08/24/21 06:07 Hct 38.9 % (37-47) 08/24/21 06:07 MCV 91.7 fL (80-100) 08/24/21 06:07 MCH 28.8 pg (25-34) 08/24/21 06:07 MCHC 31.4 g/dL (32-36) L 08/24/21 06:07 RDW Std Deviation 45.5 fL (36.4-46.3) 08/24/21 06:07 RDW Coeff of Kevin 13.6 % (11.5-14.5) 08/24/21 06:07 Plt Count 310 K/uL (130-400) 08/24/21 06:07 MPV 10.4 fL (7.4-10.4) 08/24/21 06:07 Sodium 136 mmol/L (136-145) 08/24/21 06:07 Potassium 4.3 mmol/L (3.5-5.1) 08/24/21 06:07 Chloride 106 mmol/L (98-107) 08/24/21 06:07 Carbon Dioxide 26 mmol/L (21-32) 08/24/21 06:07 Anion Gap 4 (3-11) 08/24/21 06:07 BUN 20 mg/dl (6-23) 08/24/21 06:07 Creatinine 1.13 mg/dl (0.6-1.2) 08/24/21 06:07 Est Cr Clr Drug Dosing 74.9 ml/min 08/24/21 06:07 Est GFR ( Amer) 62.5 ml/min 08/24/21 06:07 Est GFR (Non-Af Amer) 53.9 ml/min 08/24/21 06:07 BUN/Creatinine Ratio 17.7 (10-20) 08/24/21 06:07 Glucose 158 mg/dl (70-99(Fasting)) H 08/24/21 06:07 POC Glucose 131 mg/dl (70-99) H 08/24/21 07:53 Calcium 9.2 mg/dl (8.5-10.1) 08/24/21 06:07 SARS-CoV-2, RNA, NAAT NEGATIVE (NEGATIVE) 08/23/21 07:57 Impressions Knee X-Ray 08/23/21 12:55 XR knee LT 1 or 2V routine CLINICAL HISTORY: Surgical Post Op. Status post total knee replacement COMPARISON STUDY: No previous studies for comparison. TECHNIQUE: 2 left knee views FINDINGS: The patient is status post total knee replacement. The prosthetic components are in anatomic alignment with no acute abnormality seen. Air is present within the soft tissues from the procedure. Skin capri are seen anteriorly. IMPRESSION: 1. Status post total knee replacement with resurfacing of the patella. ACT 112: Negative or not required by law. Electronically signed by: Jhony Vital M.D. 08/23/2021 1:33 PM
[2021-08-24] MEDS: ATENOLOL 25 MG TABLET PO SCH (08:19)
[2021-08-24] MEDS: DOCUSATE SODIUM 100 MG CAP PO SCH ×2 (08:20→21:33)
[2021-08-24] MEDS: MULTIVITAMIN TAB PO SCH (08:21)
[2021-08-24] MEDS: ATORVASTATIN 40 MG TAB PO SCH (08:21)
[2021-08-24] MEDS: VALSARTAN 80 MG TAB PO SCH (08:22)
[2021-08-24] MEDS: CHOLECALCIFEROL 1,000 UNITS 25 MCG TAB PO SCH ×2 (08:22→21:33)
[2021-08-24] MEDS: RIVAROXABAN 10 MG TABLET PO SCH (08:23)
[2021-08-24] MEDS: INSULIN ASPART PER UNIT SC SCH ×4 (08:56→21:00)
[2021-08-24] MEDS ORDERED: KETOROLAC 30 MG/ML VIAL IV ONE (11:07)
[2021-08-24] MEDS ORDERED: KETOROLAC 30 MG/ML VIAL IV PRN (11:07)
[2021-08-24] MEDS ORDERED: HYDROmorphone INJ 0.5 MG/0.5 ML SYR IV PRN (11:10)
--- NOTE | 2021-08-24 11:49 | Hospitalist Progress Note ---
Date of Service August 24, 2021 Assessment & Plan (1) Primary osteoarthritis of left knee: Plan: - s/p left TKA. EBL 5cc. Hemovac in place. No complications reported. -Pain management/DVT prophylaxis per primary team No leukocytosis, hemoglobin 12.2. Postop creatinine normal, clearance greater than 60 DVT prophylaxis with rivaroxaban, SCDs, ZOLTAN hose. Case management is working on cost/coupons for rivaroxaban. Continues to have pain in the left proximal lower extremity, patient prefers to use as minimal narcotics as possible. Currently on Toradol, Tylenol, and breakthrough hydromorphone per primary team. Did discuss goal of pain tolerable and to help her progress with exercises, and patient prefers a goal of minimizing narcotics with being just pain improved enough to engage in her rehab and not to a goal of pain-free which she realizes unrealistic. Hydromorphone has been decreased at patient's request, she thinks she will try this for her knee extension exercises if needed otherwise we will stick to maximizing nonnarcotic modalities and p.o. as needed. Received perioperative cefazolin without signs of ongoing infection Pending discharge with home health services being set up by CM. (2) Diabetes mellitus: Plan: - Currently taking metformin ER 750 mg twice daily and glimepiride 0.5 mg on days when sugar is high. - A1c August 2021 6.4, average blood sugar 137. - Pharmacy consulted by primary team for glycemic control, Adequate glycemic control today - Patient may restart oral medications on discharge. (3) Hypertension: Plan: - Currently on valsartan 80 mg daily and atenolol 25 mg daily. -Continue atenolol Continue valsartan 80 mg p.o. daily Normotensive 08/24 (4) HLD (hyperlipidemia): Plan: - Continue atorvastatin 80 mg daily. (5) Hypothyroidism: Plan: - Continue levothyroxine 50 mcg daily. - TSH in May 2021 5.09. (6) Insomnia: Plan: - Takes trazodone 100 mg as needed, but not every night. May continue as needed Plan: - Admitted to [facility] per primary team. - VTE PPx: Rivaroxaban, SCDs, ZOLTAN hose per primary team - Full code. Admission and Anticipated Discharge Date Admission Date: August 23, 2021 Subjective Seen the bedside this morning. She reports she is having variable pain in her knee with stiffness, the most difficult exercise for her is knee extension exercises. She is extremely hesitant to use IV pain control, and is very wary of narcotics. Feels she has gotten some improvement from Tylenol and Toradol. Denies fever, chills, sweats, shortness of breath, difficulty breathing, chest pain, chest pressure. Is working with PT and was able to walk in the hallway today. Pain at bedside in her knee is 6-7 out of 10 with extension. Review of Systems Review of Systems: All systems reviewed & are unremarkable except as noted in Subjective Physical Exam Physical Exam: General: A&Ox3. NAD. Cooperative. HEENT: Atraumatic, normocephalic. Pulm: CTAB A&P. -wheezes, -rales, -rhonchi. Symmetrical chest rise. No increase in work of breathing. No respiratory distress. Cardiac: RRR, -mrg. Radial pulses intact and symmetrical. Abdominal: Nontender, nondistended, soft. BS present. Extremities: Sensation of soft touch in feet bilaterally without asymmetry. Cap refill in the hallux brisk bilaterally. Hip flexion 5/5 bilaterally. Left knee and postsurgical wrap, extension intact but pain limited. Drain in place draining sanguinous output. Results & Data Results & Data ([facility]) Vital Signs (Past 12 Hours) Vital Signs Temp Pulse Resp BP BP Pulse Ox 08/24/21 10:59 36.6 C 74 18 123/82 96 08/24/21 08:18 71 126/79 08/24/21 07:43 36.6 C 76 18 106/70 94 08/24/21 04:28 36.4 C L 73 18 135/82 96 PG Care Time/CCT Total # of Minutes Spent Total Time Spent with Patient: Total time spent is greater than 50% in coordination of care (as documented) at patient's floor/unit and/or counseling patient: Coding Level of Care Code 97035 Subseq Hosp Care Lvl 2 Diagnoses Primary osteoarthritis of left knee M17.12 Diabetes mellitus E11.9 Hypertension I10 HLD (hyperlipidemia) E78.5 Hypothyroidism E03.9 Insomnia G47.00
[2021-08-24] MEDS: SENNA 8.6 MG TAB PO SCH (21:34)
[2021-08-25] MEDS: ACETAMINOPHEN 500 MG TAB PO SCH (05:55)
[2021-08-25] MEDS: LEVOTHYROXINE SODIUM 50 MCG TABLET PO SCH (05:55)
--- NOTE | 2021-08-25 07:07 | Orthopedic Progress Note ---
Date of Service August 25, 2021 Assessment & Plan (1) Primary osteoarthritis of left knee: Plan: Postop day 2 status post left total knee arthroplasty PT/OT protocols. Weightbearing as tolerated. DVT prophylaxis-rivaroxaban p.o. daily, Mary Ellen, ZOLTAN dawn. Pain management as written DC planning- plan for d/c home today with HHPT Admission and Anticipated Discharge Date Admission Date: August 23, 2021 Subjective POD #2 Review of Systems Constitutional: no fever and no chills Respiratory: no cough and no dyspnea Cardiovascular: no chest pain, no dyspnea and no orthopnea Gastrointestinal: no abdominal pain, no nausea and no vomiting Physical Exam Physical Exam: Vital Signs Temp 36.7 C 08/24/21 22:30 Pulse 80 08/24/21 22:30 Resp 18 08/24/21 22:30 BP 117/70 08/24/21 22:30 Pulse Ox 93 08/24/21 22:30 Intake & Output 08/24/21 08/25/21 08/25/21 18:59 06:59 18:59 Output Total 300 / 425 125 / 425 Balance -300 / -425 -125 / -425 Output: Drain Output 300 / 425 125 / 425 Left Knee Hemo vac 300 / 425 125 / 425 Other: # Unmeasured Voi ds 1 1 Left knee: Dressings are clean, dry, and intact. Calves are soft and nontender. Neurovascular intact. Toes are mobile. She has good dorsiflexion and plantarflexion of the left foot. Results & Data ([facility]) Vital Signs (Past 12 Hours) Vital Signs Temp Pulse Resp BP Pulse Ox 08/24/21 22:30 36.7 C 80 18 117/70 93
[2021-08-25] MEDS: INSULIN ASPART PER UNIT SC SCH (08:38)
[2021-08-25] MEDS: MULTIVITAMIN TAB PO SCH (08:40)
[2021-08-25] MEDS: ATENOLOL 25 MG TABLET PO SCH (08:40)
[2021-08-25] MEDS: RIVAROXABAN 10 MG TABLET PO SCH (08:40)
[2021-08-25] MEDS: CHOLECALCIFEROL 1,000 UNITS 25 MCG TAB PO SCH (08:40)
[2021-08-25] MEDS: ATORVASTATIN 40 MG TAB PO SCH (08:40)
[2021-08-25] MEDS: DOCUSATE SODIUM 100 MG CAP PO SCH (08:40)
[2021-08-25] MEDS: VALSARTAN 80 MG TAB PO SCH (08:41)
--- NOTE | 2021-08-28 13:09 | Discharge Summary ---
Date of Service August 28, 2021 Admission HPI Per Admitting Provider 56 year old female with PMHx significant for HTN, high cholesterol, DM2 hypothyroid who presents with ongoing left knee pain. She has failed conservative measures. Pain interfering with her daily activities. She would li ke to proceed with surgical management. Patient denies headaches, sweats, fevers, chills, double vision, blurred vision, cough, sore throat, dysphagia, chest pain, sob, wheezing, n/v/d/c, numbness, tingling, fatigue, urinary symptoms, mood disorders. ROS positive for left knee pain and stiffness. Admission Exam Per Admitting Provider Constitutional: well developed and well nourished; no acute distress Eyes: PERRL, conjunctivae normal, anicteric sclerae A ENMT: external ear and nose normal, oropharynx normal Neck: trachea midline, no thyromegaly Respiratory: normal respiratory effort, lungs clear to auscultation Cardiovascular: RRR, no murmur, no edema Musculoskeletal: Left knee: Valgus alignment. Moderate crepitation with ROM. Tenderness lateral joint line. Positive Silvia's. Stable to valgus and varus stress. ROM 10-125 degrees. Skin: no rashes, warm and dry Neurologic: patellar DTR's 2+ bilat, sensation intact Psychiatric: A+Ox3, euthymic affect Principal Diagnosis Left knee osteoarthritis Discharge Exam Dressings are clean, dry, and intact. Calves are soft and nontender. Neurovas cular intact. Toes are mobile. She has good dorsiflexion and plantarflexion of the left foot. Hemovac drainage was 125 mL from the previous shift. Constitutional well developed and well nourished; no acute distress Discharge Data Allergies Allergy/AdvReac Type Severity Reaction Status Date / Time meloxicam AdvReac Intermediate Weird Verified 08/23/21 08:08 feeling-dizziness "loopy" lisinopril AdvReac Unknown Cough Verified 08/23/21 08:08 Consultations 08/21/21 10:48 Consult Hospitalist Routine Procedures Performed Operation Date: 08/23/21 09:40 Actual Procedures p Left Total Knee Arthroplasty(Left) - Félix Nelson MD Ordered Studies 08/23/21 05:00 US - OR guided needle placemen Routine Hospital Course (1) Primary osteoarthritis of left knee: Postop day 2 status post left total knee arthroplasty PT/OT protocols. Weightbearing as tolerated. DVT prophylaxis-rivaroxaban p.o. daily, SCDs, ZOLTAN dawn. Pain management as written DC planning- plan for d/c home today with HHPT Lab Results 08/23/21 08/23/21 08/23/21 Range/Units 07:57 08:02 13:00 WBC (4.8-10.8) K/uL RBC (4.2-5.4) M/uL Hgb (12.0-16.0) g/dL Hct (37-47) % MCV (80-100) fL MCH (25-34) pg MCHC (32-36) g/dL RDW Std Deviation (36.4-46.3) fL RDW Coeff of Kevin (11.5-14.5) % Plt Count (130-400) K/uL MPV (7.4-10.4) fL Sodium (136-145) mmol/L Potassium (3.5-5.1) mmol/L Chloride (98-107) mmol/L Carbon Dioxide (21-32) mmol/L Anion Gap (3-11) BUN (6-23) mg/dl Creatinine (0.6-1.2) mg/dl Est Cr Clr Drug Dosing ml/min Est GFR ( Amer) ml/min Est GFR (Non-Af Amer) ml/min BUN/Creatinine Ratio (10-20) Glucose (70-99(Fasting)) mg/dl POC Glucose 179 H 138 H (70-99) mg/dl Calcium (8.5-10.1) mg/dl Hepatitis C Ab (EIA) (NON-REACTIVE) Hep C Ab Signal/Cutoff (<1.00) SARS-CoV-2, RNA, NAAT NEGATIVE (NEGATIVE) 08/23/21 08/23/21 08/24/21 Range/Units 17:35 20:28 06:07 WBC 8.29 (4.8-10.8) K/uL RBC 4.24 (4.2-5.4) M/uL Hgb 12.2 (12.0-16.0) g/dL Hct 38.9 (37-47) % MCV 91.7 (80-100) fL MCH 28.8 (25-34) pg MCHC 31.4 L (32-36) g/dL RDW Std Deviation 45.5 (36.4-46.3) fL RDW Coeff of Kevin 13.6 (11.5-14.5) % Plt Count 310 (130-400) K/uL MPV 10.4 (7.4-10.4) fL Sodium (136-145) mmol/L Potassium (3.5-5.1) mmol/L Chloride (98-107) mmol/L Carbon Dioxide (21-32) mmol/L Anion Gap (3-11) BUN (6-23) mg/dl Creatinine (0.6-1.2) mg/dl Est Cr Clr Drug Dosing ml/min Est GFR ( Amer) ml/min Est GFR (Non-Af Amer) ml/min BUN/Creatinine Ratio (10-20) Glucose (70-99(Fasting)) mg/dl POC Glucose 200 H 93 (70-99) mg/dl Calcium (8.5-10.1) mg/dl Hepatitis C Ab (EIA) (NON-REACTIVE) Hep C Ab Signal/Cutoff (<1.00) SARS-CoV-2, RNA, NAAT (NEGATIVE) 08/24/21 08/24/21 08/24/21 Range/Units 06:07 06:07 07:53 WBC (4.8-10.8) K/uL RBC (4.2-5.4) M/uL Hgb (12.0-16.0) g/dL Hct (37-47) % MCV (80-100) fL MCH (25-34) pg MCHC (32-36) g/dL RDW Std Deviation (36.4-46.3) fL RDW Coeff of Kevin (11.5-14.5) % Plt Count (130-400) K/uL MPV (7.4-10.4) fL Sodium 136 (136-145) mmol/L Potassium 4.3 (3.5-5.1) mmol/L Chloride 106 (98-107) mmol/L Carbon Dioxide 26 (21-32) mmol/L Anion Gap 4 (3-11) BUN 20 (6-23) mg/dl Creatinine 1.13 (0.6-1.2) mg/dl Est Cr Clr Drug Dosing 74.9 ml/min Est GFR ( Amer) 62.5 ml/min Est GFR (Non-Af Amer) 53.9 ml/min BUN/Creatinine Ratio 17.7 (10-20) Glucose 158 H (70-99(Fasting)) mg/dl POC Glucose 131 H (70-99) mg/dl Calcium 9.2 (8.5-10.1) mg/dl Hepatitis C Ab (EIA) NON-REACTIVE (NON-REACTIVE) Hep C Ab Signal/Cutoff 0.02 (<1.00) SARS-CoV-2, RNA, NAAT (NEGATIVE) 08/24/21 08/24/21 08/24/21 Range/Units 12:16 17:15 20:33 WBC (4.8-10.8) K/uL RBC (4.2-5.4) M/uL Hgb (12.0-16.0) g/dL Hct (37-47) % MCV (80-100) fL MCH (25-34) pg MCHC (32-36) g/dL RDW Std Deviation (36.4-46.3) fL RDW Coeff of Kevin (11.5-14.5) % Plt Count (130-400) K/uL MPV (7.4-10.4) fL Sodium (136-145) mmol/L Potassium (3.5-5.1) mmol/L Chloride (98-107) mmol/L Carbon Dioxide (21-32) mmol/L Anion Gap (3-11) BUN (6-23) mg/dl Creatinine (0.6-1.2) mg/dl Est Cr Clr Drug Dosing ml/min Est GFR ( Amer) ml/min Est GFR (Non-Af Amer) ml/min BUN/Creatinine Ratio (10-20) Glucose (70-99(Fasting)) mg/dl POC Glucose 119 H 103 H 138 H (70-99) mg/dl Calcium (8.5-10.1) mg/dl Hepatitis C Ab (EIA) (NON-REACTIVE) Hep C Ab Signal/Cutoff (<1.00) SARS-CoV-2, RNA, NAAT (NEGATIVE) 08/25/21 Range/Units 08:08 WBC (4.8-10.8) K/uL RBC (4.2-5.4) M/uL Hgb (12.0-16.0) g/dL Hct (37-47) % MCV (80-100) fL MCH (25-34) pg MCHC (32-36) g/dL RDW Std Deviation (36.4-46.3) fL RDW Coeff of Kevin (11.5-14.5) % Plt Count (130-400) K/uL MPV (7.4-10.4) fL Sodium (136-145) mmol/L Potassium (3.5-5.1) mmol/L Chloride (98-107) mmol/L Carbon Dioxide (21-32) mmol/L Anion Gap (3-11) BUN (6-23) mg/dl Creatinine (0.6-1.2) mg/dl Est Cr Clr Drug Dosing ml/min Est GFR ( Amer) ml/min Est GFR (Non-Af Amer) ml/min BUN/Creatinine Ratio (10-20) Glucose (70-99(Fasting)) mg/dl POC Glucose 129 H (70-99) mg/dl Calcium (8.5-10.1) mg/dl Hepatitis C Ab (EIA) (NON-REACTIVE) Hep C Ab Signal/Cutoff (<1.00) SARS-CoV-2, RNA, NAAT (NEGATIVE) Total Time Total Time Spent Total Time Spent (In Minutes): 20 Discharge Plan Discharge Items Patient Disposition: Home - Home Health Services Reason For Visit: Unilateral Primary Osteoarthritis, Left Knee Discharge Diagnosis: Left knee osteoarthritis Condition on Discharge: Good Activity: Per Instructions section Weightbearing: Left weightbearing Weightbearing Comment: as tolerated with walker Non-emergency contact: Surgeon Call non-emergency contact if: you have any medication questions, your pain is not controlled, your pain is concerning for you, you have a fever, your temperature is above 101, your wound has increased redness and your wound has increased drainage Follow-up/Referrals: Stephen Molina MD [Primary Care Provider] - Félix Nelson MD [Surgeon] - (Follow up in 2 weeks from the day of surgery with Dr Nelson for your first check up) Diet: Regular Addtl Attending Provider Instructions: ACTIVITY RECOMMENDATIONS: SELF CARE INSTRUCTIONS AFTER TOTAL KNEE REPLACEMENT A. You may need to continue a physical therapy program after discharge from the hospital. There are several options available to you. Your doctor will assist you in selecting the best one for you. 1. An out-patient facility 2 to 3 times a week for therapy or home therapy. 2. Continue working on all exercises taught to you in the hospital. Your goals should be to increase bending of your knee to 90 degrees and beyond and to fully straighten your knee. B. You may progress at your own pace from walking with a walker or crutches to a cane; then to no assistive devices. C. Make walking a part of your daily routine. Be up as much as comfortable with rest periods throughout the day. Rest with leg elevation is very important. Use the ice wrap frequently for the first 3-4 weeks. D. There are no restrictions on activities. You may ride in a car, shop, participate in reciprocating drill operator and all social activities. E. Wear the long elastic stockings (ZOLTAN hose) 20 hours a day for 2 weeks after surgery. They can be removed several times a day for laundering and for a bath. F. You may shower, no tub baths until cleared by your doctor. SPECIAL CARE INSTRUCTIONS: VERY IMPORTANT TO READ AND REVIEW A. There are a few signs you need to watch for after you are home. Call [facility] if you notice any of the followin. Increased severe knee pain. Some pain is expected especially when you exercise. 2. Increased swelling in your leg or knee; pain or swelling of the calf muscle in either lower leg. 3. Any fluid drainage from the incision. 4. Shortness of breath or chest pain. B. Please call [facility] at if you have any concerns or questions about your operation or recovery. The doctor or his nurse will return your call promptly. C. You must take antibiotics before dental work, bladder, bowel or other surgery. Your doctor will provide you with a permanent care to carry describing this precaution. IMPORTANT: * REMEMBER TO TAKE XARELTO (RIVAROXIBAN) 10MG DAILY FOR 4 WEEKS UNLESS OTHERWISE DIRECTED. THIS IS YOUR BLOOD THINNER. * CALL IF INCREASED PAIN, REDNESS, DRAINAGE OR FEVER GREATER THAT 101. * WEAR ZOLTAN HOSE 20 HOURS PER DAY FOR 2 WEEKS. This is a large suction dressing covering your incision. This will help pull any excess drainage from the wound and allow your incision to heal properly. You may shower with this if you can keep the unit outside of the shower. If any bleeding or leakage is noted please call your doctor's office. This will remain on your incision for 7 days and then should be removed. This can be done yourself or by the home nursing staff if applicable. The entire unit is disposable once removed. Once removed, keep incision clean and dry. If redness or drainage is noted, please call your surgeon. IF INCISION IS LEAKING THROUGH DRESSING, CALL THE OFFICE . FOLLOW UP VISIT: If appointment is not already scheduled: Please call [facility] to make a follow-up appointment for 2 weeks after your surgery at . Pending Studies at Discharge: No Stand-Alone Forms: My [facility], Smoking Cessation Medications and DC Order Prescriptions: New acetaminophen [Tylenol Extra Strength] 500 mg Tablet 1,000 mg PO Q8 14 Days Qty: 84 RF: 0 Xarelto 10 mg Tablet 10 mg PO DAILY 30 Days Qty: 30 RF: 0 polyethylene glycol 3350 [Miralax] 17 gram powder in packet 17 g PO DAILY PRN (Reason: constipation) Qty: 5 RF: 0 oxycodone 5 mg Tablet 5 mg PO Q4H MDD 6 PRN (Reason: pain) Qty: 30 RF: 0 Continued ondansetron HCl [Zofran] 4 mg tablet 4 mg PO Q8H PRN (Reason: nausea and vomiting) Qty: 14 RF: 2 atenolol 25 mg tablet See Rx Instructions .ROUTE .COMPLEX Qty: 30 RF: 5 metformin 750 mg tablet extended release 24 hr 750 mg PO BID Qty: 60 RF: 5 atorvastatin 80 mg tablet 80 mg PO DAILY Qty: 90 RF: 3 trazodone 50 mg tablet 100 mg PO DAILY PRN (Reason: insomnia) Qty: 30 RF: 5 levothyroxine 50 mcg tablet 50 mcg PO DAILY Qty: 90 RF: 3 glimepiride 1 mg tablet 0.5 mg PO DAILY RF: 0 cholecalciferol (vitamin D3) 75 mcg (3,000 unit) tablet 75 mcg PO BID RF: 0 famotidine [Pepcid] 20 mg Tablet 20 mg PO DAILY PRN (Reason: Acid Reflux) RF: 0 aspirin 81 mg Tablet 81 mg PO QAM RF: 0 valsartan [Diovan] 80 mg tablet 80 mg PO DAILY RF: 0 Discharge Orders: Discharge Order (Routine); Ordered 08/25/21 Ordered By: Colt Palacio Admission Data Admit Date/Time: 08/23/21 12:55 Attending Provider: Félix Nelson Admit Provider: Félix Nelson Primary Care Provider: Stephen Molina Other Interventions: Discharge Summary Assessment (RN) Last Done: 08/25/21 10:54
== END 2021-08-25 11:09 | disposition home health service (06) | DRG 470 ==
LOC: ASU 07:38 → INTOOBSV 12:55 → 3E 12:55